=== PATIENT | female | born 1945 | race Caucasian/White ===

== ENCOUNTER 2019-08-20 13:00 | Inpatient (IN) ==
[2019-08-20] MEDS ORDERED: Ethanol\\Acetic Acid\\Na Ace\\Ben 1,000 ML IRRIG.SOLN IR ONE (13:21)
[2019-08-20] MEDS ORDERED: CeFAZolin Syr 2,000MG/20 ML 2,000 MG/20 ML SYRINGE IVPB ONE (13:37)
[2019-08-20] MEDS ORDERED: *HR* HYDROmorphone (PF) 1 MG/ML SYRINGE IVP PRN (13:45)
[2019-08-20] MEDS ORDERED: Famotidine 20 MG/2 ML VIAL IVP ONE (13:45)
[2019-08-20] MEDS ORDERED: Acetaminophen IV 1,000 MG/100 ML INFUS..BTL IVPB ONE (13:45)
[2019-08-20] MEDS ORDERED: Ketorolac 30 MG/ML VIAL IVP ONE (13:45)
[2019-08-20] MEDS ORDERED: *HR* Labetalol 20 MG/4 ML SYRINGE IVP PRN (13:45)
[2019-08-20] MEDS ORDERED: Ringers Solution, Lactated 1,000 ML IVC SCH ×2 (13:45→17:06)
[2019-08-20] MEDS ORDERED: *HR* Promethazine 25 MG/ML VIAL IVP PRN (13:45)
[2019-08-20] MEDS ORDERED: Ondansetron 4 MG/2 ML VIAL IVP ONE (13:45)
[2019-08-20] MEDS ORDERED: *HR* OxyCODONE Immed Rel 5 MG TABLET PO PRN ×2 (13:45→17:06)
[2019-08-20] MEDS ORDERED: *HR* Midazolam HCl 2 MG/2 ML VIAL ONE (13:51)
[2019-08-20] MEDS ORDERED: *HR* Propofol 200 MG/20 ML VIAL IVP ONE (13:51)
[2019-08-20] MEDS ORDERED: *HR* FentaNYL (PF) 100 MCG/2 ML VIAL ONE (13:51)
[2019-08-20] MEDS ORDERED: Lidocaine -MPF 2% 2 ML VIAL ONE (13:52)
[2019-08-20] MEDS ORDERED: *HR* Succinylcholine 200 MG/10 ML VIAL IVP ONE (13:52)
[2019-08-20] MEDS ORDERED: Dexamethasone 4 MG/ML VIAL ONE ×2 (13:52→13:59)
[2019-08-20] MEDS ORDERED: Ropivacaine/PF 0.5% 30 ML VIAL ONE (13:59)
[2019-08-20] MEDS ORDERED: ROPIVACAINE/PF/NS 0.25% 1 EACH SYRINGE INTRAART ONE (13:59)
[2019-08-20] MEDS ORDERED: *HR* PHENYLEPHRINE 1,000 MCG/10 ML SYRINGE IVP ONE (15:10)
[2019-08-20 16:53] LABS: Hematocrit 35.2 % (35.3-44.9); Hemoglobin 11.8 g/dL (11.5-15.4)
[2019-08-20] MEDS ORDERED: MOM Conc 10 ML UD.LIQ PO PRN (17:06)
[2019-08-20] MEDS ORDERED: *HR* OxyCODONE/APAP 5/325 TABLET PO PRN (17:06)
[2019-08-20] MEDS ORDERED: Sennosides 8.6 MG TABLET PO PRN (17:06)
[2019-08-20] MEDS ORDERED: Naloxone 0.4 MG/ML INJ IVP PRN (17:06)
[2019-08-20] MEDS ORDERED: Ondansetron 4 MG/2 ML VIAL IVP PRN (17:06)
[2019-08-20] MEDS ORDERED: traMADol 50 MG TABLET PO PRN (17:06)
[2019-08-20] MEDS ORDERED: Temazepam 15 MG CAPSULE PO PRN (17:06)
[2019-08-20] MEDS ORDERED: Niacin (24 HR) 500 MG TAB.ER.24H PO SCH (18:00)
[2019-08-20] MEDS ORDERED: *HR* Enoxaparin 30 MG/0.3 ML SYRINGE SQ SCH ×2 (18:00)
[2019-08-20] MEDS ORDERED: Multivit/Ca/Min/Fe/FA 1 TAB TABLET PO SCH (18:00)
[2019-08-20 18:47] VITALS: BP 106/68
[2019-08-20] MEDS ORDERED: Magnesium Oxide 400 MG TABLET PO SCH (21:00)
[2019-08-20] MEDS ORDERED: Famotidine 20 MG TABLET PO SCH (21:00)
[2019-08-21] MEDS ORDERED: amLODIPine 5 MG TABLET PO SCH (09:00)
== END 2019-08-20 20:35 | disposition home or self-care (01) | DRG 483 ==
LOC: SAMDAY 13:00 → 3NENU 16:44
PROVIDERS: ADMIT Orthopaedic Surgery; ATTEND Orthopaedic Surgery